=== PATIENT | female | born 1950 | race Caucasian/White ===

== ENCOUNTER 2021-08-10 14:31 | Outpatient (CLI) | payer MEDICARE | END 2021-08-10 14:32 | disposition home or self-care (01) | LOC: CSHMAMMO 14:31 | PROVIDERS: ATTEND Family Medicine | DX: Z12.31 Encounter for screening mammogram for malignant neoplasm of breast (principal) | CPT/HCPCS: 77063; 77067 ==

== ENCOUNTER 2021-09-20 08:13 | Outpatient (CLI) | payer MEDICARE | END 2021-09-20 08:14 | disposition home or self-care (01) | LOC: CSHCT 08:13 | PROVIDERS: ATTEND Internal Medicine Hematology & Oncology | DX: Z85.030 Personal history of malignant carcinoid tumor of large intestine (principal) | CPT/HCPCS: 74176; 82565 ==

== ENCOUNTER 2022-08-11 14:17 | Outpatient (CLI) | payer MEDICARE | END 2022-08-11 14:18 | disposition home or self-care (01) | LOC: CSHMAMMO 14:17 | PROVIDERS: ATTEND Family Medicine | DX: Z12.31 Encounter for screening mammogram for malignant neoplasm of breast (principal); Z13.820 Encounter for screening for osteoporosis; M81.0 Age-related osteoporosis without current pathological fracture; M85.89 Other specified disorders of bone density and structure, multiple sites | CPT/HCPCS: 77063; 77067; 77080 ==

== ENCOUNTER 2022-09-19 08:05 | Outpatient (CLI) | payer MEDICARE ==
[2022-09-19] MEDS ORDERED: Iopamidol 300 61% 100 ML VIAL FS ONE (15:35)
== END 2022-09-19 08:06 | disposition home or self-care (01) ==
LOC: CSHCT 08:05
PROVIDERS: ATTEND Internal Medicine Hematology & Oncology
DX: C7A.021 Malignant carcinoid tumor of the cecum (principal)
CPT/HCPCS: 74177; 82565

== ENCOUNTER 2023-09-15 09:35 | Outpatient (CLI) | payer MEDICARE ==
[2023-09-15] MEDS ORDERED: Iopamidol 300 61% 100 ML VIAL FS ONE (12:23)
== END 2023-09-15 09:36 | disposition home or self-care (01) ==
LOC: CSHCT 09:35
PROVIDERS: ATTEND Internal Medicine Hematology & Oncology
DX: D3A.00 Benign carcinoid tumor of unspecified site (principal)
CPT/HCPCS: 74177; 82565

== ENCOUNTER 2023-09-21 14:14 | Outpatient (CLI) | payer MEDICARE | END 2023-09-21 14:15 | disposition home or self-care (01) | LOC: CSHMAMMO 14:14 | PROVIDERS: ATTEND Family Medicine | DX: Z12.31 Encounter for screening mammogram for malignant neoplasm of breast (principal) | CPT/HCPCS: 77063; 77067 ==

== ENCOUNTER → 2024-09-11 | Outpatient (CLI) | payer MEDICARE | LOC: CSHCT 08:28 | PROVIDERS: ATTEND Internal Medicine Hematology & Oncology | DX: C7A.021 Malignant carcinoid tumor of the cecum (principal); K31.89 Other diseases of stomach and duodenum | CPT/HCPCS: 36415; 74177; 82565 ==

== ENCOUNTER 2024-09-25 12:46 | Outpatient (CLI) | payer MEDICARE | END 2024-09-25 12:47 | disposition home or self-care (01) | LOC: CSHMAMMO 12:46 | PROVIDERS: ATTEND Family Medicine | DX: Z12.31 Encounter for screening mammogram for malignant neoplasm of breast (principal); M81.0 Age-related osteoporosis without current pathological fracture; M85.89 Other specified disorders of bone density and structure, multiple sites | CPT/HCPCS: 77063; 77067; 77080 ==

== ENCOUNTER 2025-05-02 14:51 | Inpatient (IN) | payer MEDICARE ==
[~2025-05-02 14:51] MED LIST: Iopamidol 370 76% 100 ML VIAL ONE
[2025-05-02 15:20] LABS: #Basophils Less than 0.03 10x3/uL (0.0-0.2); #Eosinophils Less than 0.03 10x3/uL (0.0-0.5); #Monocytes 0.39 10x3/uL (0.0-1.1); #Neutrophils 6.56 10x3/uL (1.5-8.4); %Basophils 0.1 % (0.0-2.0); %Eosinophils 0.0 % (0.0-6.0); %Lymphocytes 10.2 % (18.0-47.0); %Monocytes 5.0 % (0.0-10.0); %Neutrophils 84.6 % (40.0-75.0); Hematocrit 40.8 % (34.9-44.5); Hemoglobin 13.9 g/dL (12.0-15.5); Mean Corpuscular Hemoglobin 33.3 pg (27.0-33.0); Mean Corpuscular Volume 97.8 fL (81.6-98.3); Platelet Count 221 10x3/uL (150-450); Red Blood Cell (RBC) Count 4.17 10x6/uL (3.90-5.03); White Blood Cell (WBC) Count 7.76 10x3/uL (3.5-10.5)
[2025-05-02 15:41] LABS: ALT (SGPT) 27 U/L (Less than 34); AST (SGOT) 34 U/L (11-34); Albumin 4.9 g/dL (3.1-4.5); Alkaline Phosphatase 67 U/L (40-110); Anion Gap 17 mmol/L (10-20); BUN (Urea Nitrogen) 13 mg/dL (9.8-20.1); Bilirubin, Total 0.7 mg/dL (0.3-1.2); Calc. Creatinine Clearance 0 mL/min (70-130); Calcium 10.2 mg/dL (7.8-10.44); Carbon Dioxide 25 mmol/L (23-31); Chloride 101 mmol/L (98-107); Globulin 2.8 g/dL (2.4-3.5); Glucose 134 mg/dL (83-110); Lipase 25 U/L (8-78); Potassium 3.9 mmol/L (3.5-5.1); Sodium 139 mmol/L (136-145)
[2025-05-02] MEDS ORDERED: Ondansetron PF 4 MG/2 ML Vial ONE (15:41)
[2025-05-02 15:47] LABS: Troponin I Less than 0.010 ng/mL (< 0.028)
[2025-05-02] MEDS ORDERED: Electrolyte Replacement Protocol 1 EACH FS SCH (17:30)
[2025-05-02 17:46] LABS: Glucose, Urine (Dipstick) Normal (Negative); Leukocyte Negative (Negative); Protein, Urine (Dipstick) 15 mg/dl (Neg-Trace); Specific Gravity, Urine 1.005 (1.005-1.030)
[2025-05-02 17:56] LABS: Bacteria/HPF 1+ HPF (None Seen); CAUTI Indications for Culture Pelvic or flank pain; RBC/HPF 0-3 HPF (0-3); WBC/HPF 0-3 HPF (0-3)
[2025-05-02 17:57] LABS: Urine Culture Reflex No No
[2025-05-02] MEDS: Famotidine/PF 20 mg/2ml Vial SLOW IVP SCH (20:26)
[2025-05-03 00:14] VITALS: BMI 19.3
[2025-05-03] MEDS: Ondansetron PF 4 MG/2 ML Vial IVP PRN (00:39)
[2025-05-03] MEDS: Ondansetron PF 4 MG/2 ML Vial IVP SCH (03:01)
[2025-05-03] MEDS: hydrALAZINE 20 MG/ML VIAL SLOW IVP PRN (03:07)
[2025-05-03 04:45] LABS: #Basophils Less than 0.03 10x3/uL (0.0-0.2); #Eosinophils 0.03 10x3/uL (0.0-0.5); #Monocytes 0.65 10x3/uL (0.0-1.1); #Neutrophils 6.07 10x3/uL (1.5-8.4); %Basophils 0.2 % (0.0-2.0); %Eosinophils 0.4 % (0.0-6.0); %Lymphocytes 15.7 % (18.0-47.0); %Monocytes 8.1 % (0.0-10.0); %Neutrophils 75.2 % (40.0-75.0); Hematocrit 42.2 % (34.9-44.5); Hemoglobin 13.9 g/dL (12.0-15.5); Mean Corpuscular Hemoglobin 32.3 pg (27.0-33.0); Mean Corpuscular Volume 98.1 fL (81.6-98.3); Platelet Count 197 10x3/uL (150-450); Red Blood Cell (RBC) Count 4.30 10x6/uL (3.90-5.03); White Blood Cell (WBC) Count 8.07 10x3/uL (3.5-10.5)
[2025-05-03 05:00] LABS: ALT (SGPT) 19 U/L (Less than 34); AST (SGOT) 30 U/L (11-34); Albumin 4.3 g/dL (3.1-4.5); Alkaline Phosphatase 64 U/L (40-110); Anion Gap 14 mmol/L (10-20); BUN (Urea Nitrogen) 10 mg/dL (9.8-20.1); Bilirubin, Total 0.7 mg/dL (0.3-1.2); Calc. Creatinine Clearance 80 mL/min (70-130); Calcium 9.3 mg/dL (7.8-10.44); Carbon Dioxide 21 mmol/L (23-31); Chloride 104 mmol/L (98-107); Globulin 2.7 g/dL (2.4-3.5); Glucose 115 mg/dL (83-110); Magnesium 2.0 mg/dL (1.6-2.6); Potassium 3.8 mmol/L (3.5-5.1); Sodium 135 mmol/L (136-145)
[2025-05-03] MEDS: Magnesium 2 GM/50 ML(in water) 2 GM in Premix 1 BAG IVPB SCH (07:51)
[2025-05-03] MEDS: Metoprolol Tartrate 5 MG (5 mL) VIAL IVP SCH (12:23)
[2025-05-04 04:37] LABS: #Basophils Less than 0.03 10x3/uL (0.0-0.2); #Eosinophils Less than 0.03 10x3/uL (0.0-0.5); #Monocytes 0.93 10x3/uL (0.0-1.1); #Neutrophils 7.44 10x3/uL (1.5-8.4); %Basophils 0.1 % (0.0-2.0); %Eosinophils 0.0 % (0.0-6.0); %Lymphocytes 8.2 % (18.0-47.0); %Monocytes 10.2 % (0.0-10.0); %Neutrophils 81.3 % (40.0-75.0); Hematocrit 42.7 % (34.9-44.5); Hemoglobin 13.8 g/dL (12.0-15.5); Mean Corpuscular Hemoglobin 31.9 pg (27.0-33.0); Mean Corpuscular Volume 98.6 fL (81.6-98.3); Platelet Count 209 10x3/uL (150-450); Red Blood Cell (RBC) Count 4.33 10x6/uL (3.90-5.03); White Blood Cell (WBC) Count 9.15 10x3/uL (3.5-10.5)
[2025-05-04 04:53] LABS: ALT (SGPT) 18 U/L (Less than 34); AST (SGOT) 37 U/L (11-34); Albumin 4.3 g/dL (3.1-4.5); Alkaline Phosphatase 65 U/L (40-110); Anion Gap 15 mmol/L (10-20); BUN (Urea Nitrogen) 13 mg/dL (9.8-20.1); Bilirubin, Total 0.8 mg/dL (0.3-1.2); Calc. Creatinine Clearance 76 mL/min (70-130); Calcium 9.6 mg/dL (7.8-10.44); Carbon Dioxide 28 mmol/L (23-31); Chloride 102 mmol/L (98-107); Globulin 2.9 g/dL (2.4-3.5); Glucose 131 mg/dL (83-110); Magnesium 2.3 mg/dL (1.6-2.6); Potassium 4.9 mmol/L (3.5-5.1); Sodium 140 mmol/L (136-145)
[2025-05-04] MEDS: Metoprolol Tartrate 5 MG (5 mL) VIAL IVP SCH (20:58)
[2025-05-05 04:36] LABS: Hematocrit 39.3 % (34.9-44.5); Hemoglobin 13.2 g/dL (12.0-15.5); Mean Corpuscular Hemoglobin 33.5 pg (27.0-33.0); Mean Corpuscular Volume 99.7 fL (81.6-98.3); Platelet Count 179 10x3/uL (150-450); Red Blood Cell (RBC) Count 3.94 10x6/uL (3.90-5.03); White Blood Cell (WBC) Count 4.89 10x3/uL (3.5-10.5)
[2025-05-05 04:39] LABS: MDiff Complete? YES; Platelet Adequacy Comment Appears Adequate; RBC Morphology Within Normal Limits
[2025-05-05 04:47] LABS: ALT (SGPT) 16 U/L (Less than 34); AST (SGOT) 35 U/L (11-34); Albumin 3.6 g/dL (3.1-4.5); Alkaline Phosphatase 62 U/L (40-110); Anion Gap 15 mmol/L (10-20); BUN (Urea Nitrogen) 16 mg/dL (9.8-20.1); Bilirubin, Total 1.1 mg/dL (0.3-1.2); Calc. Creatinine Clearance 79 mL/min (70-130); Calcium 9.0 mg/dL (7.8-10.44); Carbon Dioxide 27 mmol/L (23-31); Chloride 102 mmol/L (98-107); Globulin 2.9 g/dL (2.4-3.5); Glucose 93 mg/dL (83-110); Potassium 4.2 mmol/L (3.5-5.1); Sodium 140 mmol/L (136-145)
[2025-05-05] MEDS ORDERED: PROPOFOL 20 ML ONE (08:38)
[2025-05-05] MEDS ORDERED: PHENYLEPHRINE-NS 100 MCG/ML 10 ML SYRINGE ONE ×2 (08:39→09:13)
[2025-05-05] MEDS ORDERED: SUCCINYLCHOLINE/SOD CL,ISO/PF 200 MG/10 ML SYRINGE FS ONE (08:39)
[2025-05-05] MEDS ORDERED: Rocuronium Bromide 10 MG/ML (10ML VIAL) ONE (08:39)
[2025-05-05] MEDS ORDERED: Bupivacaine/Epinephrine 0.25% 30 ML VIAL ONE (08:49)
[2025-05-05] MEDS ORDERED: Bupivacaine HCl 0.5%/Epinephrine 1:200,000/PF 30 ml Vial ONE (10:01)
[2025-05-05] MEDS ORDERED: SUGAMMADEX SODIUM 200 MG/2 ML VIAL ONE (10:38)
[2025-05-05] MEDS: HYDROcodone/Acetaminophen 5/325 mg Tablet PO PRN (15:05)
[2025-05-05] MEDS: Ketorolac Tromethamine 30 MG (1 mL) VIAL IVP SCH (18:26)
[2025-05-06 05:53] LABS: ALT (SGPT) 14 U/L (Less than 34); AST (SGOT) 31 U/L (11-34); Albumin 2.9 g/dL (3.1-4.5); Alkaline Phosphatase 55 U/L (40-110); Anion Gap 12 mmol/L (10-20); BUN (Urea Nitrogen) 12 mg/dL (9.8-20.1); Bilirubin, Total 1.2 mg/dL (0.3-1.2); Calc. Creatinine Clearance 88 mL/min (70-130); Calcium 8.0 mg/dL (7.8-10.44); Carbon Dioxide 26 mmol/L (23-31); Chloride 104 mmol/L (98-107); Globulin 2.5 g/dL (2.4-3.5); Glucose 93 mg/dL (83-110); Magnesium 1.9 mg/dL (1.6-2.6); Potassium 3.6 mmol/L (3.5-5.1); Sodium 138 mmol/L (136-145)
[2025-05-06 05:55] LABS: Hematocrit 33.5 % (34.9-44.5); Hemoglobin 11.2 g/dL (12.0-15.5); Mean Corpuscular Hemoglobin 33.3 pg (27.0-33.0); Mean Corpuscular Volume 99.7 fL (81.6-98.3); Platelet Count 150 10x3/uL (150-450); Red Blood Cell (RBC) Count 3.36 10x6/uL (3.90-5.03); White Blood Cell (WBC) Count 1.61 10x3/uL (3.5-10.5)
[2025-05-06 06:25] LABS: MDiff Complete? YES; Platelet Adequacy Comment Appears Adequate; RBC Morphology Within Normal Limits
[2025-05-06] MEDS: Magnesium 2 GM/50 ML(in water) 2 GM in Premix 1 BAG IVPB SCH (08:56)
[2025-05-06 10:02] LABS: Hematocrit 34.1 % (34.9-44.5); Hemoglobin 10.9 g/dL (12.0-15.5); Mean Corpuscular Hemoglobin 31.9 pg (27.0-33.0); Mean Corpuscular Volume 99.7 fL (81.6-98.3); Platelet Count 141 10x3/uL (150-450); Red Blood Cell (RBC) Count 3.42 10x6/uL (3.90-5.03); White Blood Cell (WBC) Count 2.22 10x3/uL (3.5-10.5)
[2025-05-06 11:00] LABS: Platelet Adequacy Comment Appears Adequate; RBC Morphology Within Normal Limits
[2025-05-06 11:01] LABS: MDiff Complete? YES
[2025-05-07 04:53] LABS: ALT (SGPT) 17 U/L (Less than 34); AST (SGOT) 33 U/L (11-34); Albumin 2.8 g/dL (3.1-4.5); Alkaline Phosphatase 67 U/L (40-110); Anion Gap 13 mmol/L (10-20); BUN (Urea Nitrogen) 21 mg/dL (9.8-20.1); Bilirubin, Total 1.1 mg/dL (0.3-1.2); Calc. Creatinine Clearance 63 mL/min (70-130); Calcium 8.5 mg/dL (7.8-10.44); Carbon Dioxide 26 mmol/L (23-31); Chloride 100 mmol/L (98-107); Globulin 2.9 g/dL (2.4-3.5); Glucose 81 mg/dL (83-110); Hematocrit 31.1 % (34.9-44.5); Hemoglobin 10.5 g/dL (12.0-15.5); Magnesium 2.5 mg/dL (1.6-2.6); Mean Corpuscular Hemoglobin 33.3 pg (27.0-33.0); Mean Corpuscular Volume 98.7 fL (81.6-98.3); Platelet Count 150 10x3/uL (150-450); Potassium 3.9 mmol/L (3.5-5.1); Red Blood Cell (RBC) Count 3.15 10x6/uL (3.90-5.03); Sodium 135 mmol/L (136-145); White Blood Cell (WBC) Count 3.15 10x3/uL (3.5-10.5)
[2025-05-07 04:57] LABS: MDiff Complete? YES; Platelet Adequacy Comment Appears Adequate; RBC Morphology Within Normal Limits
[2025-05-08 05:00] LABS: Hematocrit 32.3 % (34.9-44.5); Hemoglobin 10.3 g/dL (12.0-15.5); Mean Corpuscular Hemoglobin 31.7 pg (27.0-33.0); Mean Corpuscular Volume 99.4 fL (81.6-98.3); Platelet Count 158 10x3/uL (150-450); Red Blood Cell (RBC) Count 3.25 10x6/uL (3.90-5.03); White Blood Cell (WBC) Count 4.08 10x3/uL (3.5-10.5)
[2025-05-08 05:16] LABS: ALT (SGPT) 14 U/L (Less than 34); AST (SGOT) 27 U/L (11-34); Albumin 2.5 g/dL (3.1-4.5); Alkaline Phosphatase 74 U/L (40-110); Anion Gap 20 mmol/L (10-20); BUN (Urea Nitrogen) 37 mg/dL (9.8-20.1); Bilirubin, Total 0.8 mg/dL (0.3-1.2); Calc. Creatinine Clearance 52 mL/min (70-130); Calcium 8.4 mg/dL (7.8-10.44); Carbon Dioxide 22 mmol/L (23-31); Chloride 99 mmol/L (98-107); Globulin 3.2 g/dL (2.4-3.5); Glucose 68 mg/dL (83-110); Potassium 4.4 mmol/L (3.5-5.1); Sodium 137 mmol/L (136-145)
[2025-05-08 06:00] LABS: MDiff Complete? YES; Platelet Adequacy Comment Appears Adequate
[2025-05-09 05:37] LABS: ALT (SGPT) 11 U/L (Less than 34); AST (SGOT) 24 U/L (11-34); Albumin 2.5 g/dL (3.1-4.5); Alkaline Phosphatase 86 U/L (40-110); Anion Gap 24 mmol/L (10-20); BUN (Urea Nitrogen) 30 mg/dL (9.8-20.1); Bilirubin, Total 0.6 mg/dL (0.3-1.2); Calc. Creatinine Clearance 62 mL/min (70-130); Calcium 8.5 mg/dL (7.8-10.44); Carbon Dioxide 20 mmol/L (23-31); Chloride 100 mmol/L (98-107); Globulin 3.3 g/dL (2.4-3.5); Glucose 71 mg/dL (83-110); Potassium 3.6 mmol/L (3.5-5.1); Sodium 140 mmol/L (136-145)
[2025-05-09 06:51] LABS: Hematocrit 35.5 % (34.9-44.5); Hemoglobin 11.4 g/dL (12.0-15.5); Mean Corpuscular Hemoglobin 31.9 pg (27.0-33.0); Mean Corpuscular Volume 99.4 fL (81.6-98.3); Platelet Count 194 10x3/uL (150-450); Red Blood Cell (RBC) Count 3.57 10x6/uL (3.90-5.03); White Blood Cell (WBC) Count 6.02 10x3/uL (3.5-10.5)
[2025-05-09 07:02] LABS: Burr Cells SLIGHT = 2-5 cells (100X) (0-1/hpf); MDiff Complete? YES; Platelet Adequacy Comment Appears Adequate; Poikilocytosis SLIGHT = 6-15 cells (100X) (0-5/hpf)
[2025-05-09 19:22] VITALS: BMI 19.3
[2025-05-09] MEDS: Cefdinir 300 MG CAP PO SCH (22:07)
[2025-05-11 05:30] LABS: Hematocrit 34.4 % (34.9-44.5); Hemoglobin 11.4 g/dL (12.0-15.5); Mean Corpuscular Hemoglobin 32.0 pg (27.0-33.0); Mean Corpuscular Volume 96.6 fL (81.6-98.3); Platelet Count 195 10x3/uL (150-450); Red Blood Cell (RBC) Count 3.56 10x6/uL (3.90-5.03); White Blood Cell (WBC) Count 10.02 10x3/uL (3.5-10.5)
[2025-05-11 05:46] LABS: Anion Gap 17 mmol/L (10-20); BUN (Urea Nitrogen) 7 mg/dL (9.8-20.1); Calc. Creatinine Clearance 92 mL/min (70-130); Calcium 8.0 mg/dL (7.8-10.44); Carbon Dioxide 23 mmol/L (23-31); Chloride 102 mmol/L (98-107); Glucose 122 mg/dL (83-110); Potassium 2.9 mmol/L (3.5-5.1); Sodium 139 mmol/L (136-145)
[2025-05-11] MEDS: Potassium Chloride 20 MEQ in Premix 1 BAG IVPB SCH ×2 (15:03→23:29)
[2025-05-11] MEDS: VANCOMYCIN 1.25 GM/250 ML BAG 1.25 GM in Premix 1 BAG IVPB SCH (15:05)
[2025-05-11 22:12] LABS: Potassium 3.5 mmol/L (3.5-5.1)
[2025-05-11] MEDS: Vancomycin HCl 750 MG in Sodium Chloride 0.9% 250 ML 250 ML IVPB SCH (23:29)
[2025-05-12] MEDS: Metoprolol Tartrate 5 MG (5 mL) VIAL IVP SCH (00:35)
[2025-05-12 07:08] LABS: Hematocrit 36.4 % (34.9-44.5); Hemoglobin 12.2 g/dL (12.0-15.5); Mean Corpuscular Hemoglobin 32.9 pg (27.0-33.0); Mean Corpuscular Volume 98.1 fL (81.6-98.3); Platelet Count 249 10x3/uL (150-450); Red Blood Cell (RBC) Count 3.71 10x6/uL (3.90-5.03); White Blood Cell (WBC) Count 10.89 10x3/uL (3.5-10.5)
[2025-05-12 07:27] LABS: Vancomycin, Random 7.7 ug/mL (See Comment)
[2025-05-12 07:32] LABS: ALT (SGPT) 8 U/L (Less than 34); AST (SGOT) 22 U/L (11-34); Albumin 2.1 g/dL (3.1-4.5); Alkaline Phosphatase 97 U/L (40-110); Anion Gap 18 mmol/L (10-20); BUN (Urea Nitrogen) 5 mg/dL (9.8-20.1); Bilirubin, Total 0.9 mg/dL (0.3-1.2); Calc. Creatinine Clearance 87 mL/min (70-130); Calcium 8.0 mg/dL (7.8-10.44); Carbon Dioxide 24 mmol/L (23-31); Chloride 103 mmol/L (98-107); Globulin 3.2 g/dL (2.4-3.5); Glucose 88 mg/dL (83-110); Magnesium 1.6 mg/dL (1.6-2.6); Potassium 3.8 mmol/L (3.5-5.1); Sodium 141 mmol/L (136-145)
[2025-05-12] MEDS: Magnesium 2 GM/50 ML(in water) 2 GM in Premix 1 BAG IVPB SCH (08:37)
[2025-05-12] MEDS: VANCOMYCIN 1.25 GM/250 ML BAG 1.25 GM in Premix 1 BAG IVPB SCH (10:43)
[2025-05-12] MEDS ORDERED: Phenol 177 ML BOT PO PRN (10:53)
[2025-05-12] MEDS: Potassium Phosphate 15 MMOL in Sodium Chloride 0.9% 250 ML 250 ML IVPB SCH (12:58)
[2025-05-13 05:46] LABS: Hematocrit 34.8 % (34.9-44.5); Hemoglobin 11.2 g/dL (12.0-15.5); Mean Corpuscular Hemoglobin 31.5 pg (27.0-33.0); Mean Corpuscular Volume 98.0 fL (81.6-98.3); Platelet Count 245 10x3/uL (150-450); Red Blood Cell (RBC) Count 3.55 10x6/uL (3.90-5.03); White Blood Cell (WBC) Count 8.95 10x3/uL (3.5-10.5)
[2025-05-13 06:00] LABS: Anion Gap 17 mmol/L (10-20); BUN (Urea Nitrogen) 5 mg/dL (9.8-20.1); Calc. Creatinine Clearance 99 mL/min (70-130); Calcium 7.8 mg/dL (7.8-10.44); Carbon Dioxide 24 mmol/L (23-31); Chloride 106 mmol/L (98-107); Glucose 87 mg/dL (83-110); Magnesium 1.8 mg/dL (1.6-2.6); Potassium 3.2 mmol/L (3.5-5.1); Sodium 144 mmol/L (136-145); Vancomycin, Random 12.2 ug/mL (See Comment)
[2025-05-13] MEDS: Magnesium 2 GM/50 ML(in water) 2 GM in Premix 1 BAG IVPB SCH (08:55)
[2025-05-13] MEDS: Potassium Bicarbonate/Cit Ac 20 MEQ TAB PO SCH (09:14)
[2025-05-14 07:24] LABS: Magnesium 2.0 mg/dL (1.6-2.6)
[2025-05-14 08:07] LABS: Potassium 3.0 mmol/L (3.5-5.1)
[2025-05-14 10:10] LABS: #Basophils Less than 0.03 10x3/uL (0.0-0.2); #Eosinophils 0.05 10x3/uL (0.0-0.5); #Monocytes 0.50 10x3/uL (0.0-1.1); #Neutrophils 5.90 10x3/uL (1.5-8.4); %Basophils 0.3 % (0.0-2.0); %Eosinophils 0.7 % (0.0-6.0); %Lymphocytes 8.5 % (18.0-47.0); %Monocytes 7.0 % (0.0-10.0); %Neutrophils 82.5 % (40.0-75.0); Hematocrit 32.7 % (34.9-44.5); Hemoglobin 10.8 g/dL (12.0-15.5); Mean Corpuscular Hemoglobin 32.4 pg (27.0-33.0); Mean Corpuscular Volume 98.2 fL (81.6-98.3); Platelet Count 267 10x3/uL (150-450); Red Blood Cell (RBC) Count 3.33 10x6/uL (3.90-5.03); White Blood Cell (WBC) Count 7.15 10x3/uL (3.5-10.5)
[2025-05-14 10:29] LABS: Anion Gap 15 mmol/L (10-20); BUN (Urea Nitrogen) 4 mg/dL (9.8-20.1); Calc. Creatinine Clearance 115 mL/min (70-130); Calcium 7.7 mg/dL (7.8-10.44); Carbon Dioxide 24 mmol/L (23-31); Chloride 108 mmol/L (98-107); Glucose 96 mg/dL (83-110); Potassium 2.9 mmol/L (3.5-5.1); Sodium 144 mmol/L (136-145)
[2025-05-14] MEDS: Magnesium 2 GM/50 ML(in water) 2 GM in Premix 1 BAG IVPB SCH (12:16)
[2025-05-14] MEDS: Potassium Bicarbonate/Cit Ac 20 MEQ TAB PO SCH (13:54)
[2025-05-14 15:13] LABS: Potassium 2.8 mmol/L (3.5-5.1)
[2025-05-14] MEDS: Senokot S 8.6-50 MG TAB PO SCH ×2 (16:32→20:54)
[2025-05-14 22:33] LABS: Potassium 3.1 mmol/L (3.5-5.1)
[2025-05-15 06:03] LABS: #Basophils Less than 0.03 10x3/uL (0.0-0.2); #Eosinophils 0.06 10x3/uL (0.0-0.5); #Monocytes 0.56 10x3/uL (0.0-1.1); #Neutrophils 5.50 10x3/uL (1.5-8.4); %Basophils 0.3 % (0.0-2.0); %Eosinophils 0.9 % (0.0-6.0); %Lymphocytes 11.6 % (18.0-47.0); %Monocytes 8.0 % (0.0-10.0); %Neutrophils 78.5 % (40.0-75.0); Hematocrit 29.0 % (34.9-44.5); Hemoglobin 9.6 g/dL (12.0-15.5); Mean Corpuscular Hemoglobin 32.1 pg (27.0-33.0); Mean Corpuscular Volume 97.0 fL (81.6-98.3); Platelet Count 253 10x3/uL (150-450); Red Blood Cell (RBC) Count 2.99 10x6/uL (3.90-5.03); White Blood Cell (WBC) Count 7.00 10x3/uL (3.5-10.5)
[2025-05-15 06:31] LABS: Anion Gap 13 mmol/L (10-20); BUN (Urea Nitrogen) Less than 4 mg/dL (9.8-20.1); Calc. Creatinine Clearance 109 mL/min (70-130); Carbon Dioxide 24 mmol/L (23-31); Chloride 106 mmol/L (98-107); Glucose 116 mg/dL (83-110); Magnesium 1.7 mg/dL (1.6-2.6); Potassium 3.8 mmol/L (3.5-5.1); Sodium 139 mmol/L (136-145)
[2025-05-15 06:35] LABS: Calcium 6.9 mg/dL (7.8-10.44)
[2025-05-15] MEDS: PHOS-NAK 1 PKT PACK PO SCH (07:08)
[2025-05-15] MEDS: Magnesium 2 GM/50 ML(in water) 2 GM in Premix 1 BAG IVPB SCH (08:34)
[2025-05-15] MEDS: Folic Acid 1 MG TAB PO SCH (08:35)
[2025-05-15] MEDS: Acetaminophen/Codeine 30-300mg Tablet PO PRN (15:53)
[2025-05-15 17:19] LABS: Ferritin 315.23 ng/mL (10-291)
[2025-05-15 19:57] LABS: Iron 21 ug/dL (50-170)
[2025-05-15 20:42] LABS: Vitamin B12 Greater than 2000 pg/mL (211-911)
[2025-05-15 20:57] LABS: Iron Binding Capacity, Total 179 mcg/dL (265-497)
[2025-05-16 05:24] LABS: #Basophils 0.03 10x3/uL (0.0-0.2); #Eosinophils 0.06 10x3/uL (0.0-0.5); #Monocytes 0.59 10x3/uL (0.0-1.1); #Neutrophils 6.34 10x3/uL (1.5-8.4); %Basophils 0.4 % (0.0-2.0); %Eosinophils 0.8 % (0.0-6.0); %Lymphocytes 10.4 % (18.0-47.0); %Monocytes 7.4 % (0.0-10.0); %Neutrophils 80.0 % (40.0-75.0); Hematocrit 29.8 % (34.9-44.5); Hemoglobin 9.9 g/dL (12.0-15.5); Mean Corpuscular Hemoglobin 32.5 pg (27.0-33.0); Mean Corpuscular Volume 97.7 fL (81.6-98.3); Platelet Count 287 10x3/uL (150-450); Red Blood Cell (RBC) Count 3.05 10x6/uL (3.90-5.03); White Blood Cell (WBC) Count 7.92 10x3/uL (3.5-10.5)
[2025-05-16 05:42] LABS: Anion Gap 11 mmol/L (10-20); BUN (Urea Nitrogen) 4 mg/dL (9.8-20.1); Calc. Creatinine Clearance 106 mL/min (70-130); Calcium 7.7 mg/dL (7.8-10.44); Carbon Dioxide 31 mmol/L (23-31); Chloride 105 mmol/L (98-107); Glucose 119 mg/dL (83-110); Magnesium 2.1 mg/dL (1.6-2.6); Potassium 3.5 mmol/L (3.5-5.1); Sodium 143 mmol/L (136-145)
[2025-05-16] MEDS: Potassium Bicarbonate/Cit Ac 20 MEQ TAB PO SCH (08:57)
[2025-05-16] MEDS: Acetaminophen 325 MG TAB PO PRN (10:35)
[2025-05-17 05:16] LABS: Hematocrit 32.5 % (34.9-44.5); Hemoglobin 10.4 g/dL (12.0-15.5); Mean Corpuscular Hemoglobin 31.7 pg (27.0-33.0); Mean Corpuscular Volume 99.1 fL (81.6-98.3); Platelet Count 334 10x3/uL (150-450); Red Blood Cell (RBC) Count 3.28 10x6/uL (3.90-5.03); White Blood Cell (WBC) Count 7.37 10x3/uL (3.5-10.5)
[2025-05-17 05:21] LABS: MDiff Complete? YES; Platelet Adequacy Comment Appears Adequate; RBC Morphology Within Normal Limits
[2025-05-17 05:27] LABS: Anion Gap 10 mmol/L (10-20); BUN (Urea Nitrogen) 5 mg/dL (9.8-20.1); Calc. Creatinine Clearance 112 mL/min (70-130); Calcium 7.7 mg/dL (7.8-10.44); Carbon Dioxide 30 mmol/L (23-31); Chloride 103 mmol/L (98-107); Glucose 86 mg/dL (83-110); Potassium 3.9 mmol/L (3.5-5.1); Sodium 139 mmol/L (136-145)
[2025-05-17 11:41] VITALS: BP 136/75; TEMP 98.6
== END 2025-05-17 14:12 | disposition home health service (06) | DRG 329 ==
LOC: CSHERS 14:51 → CSHTELE 17:54
PROVIDERS: ADMIT Internal Medicine; ATTEND Internal Medicine
PROC: 0DTF0ZZ Resection of Right Large Intestine, Open Approach (ICD-10-PCS; principal; 2025-05-05)
PROC: 0DB80ZZ Excision of Small Intestine, Open Approach (ICD-10-PCS; 2025-05-05)
DX: K56.609 Unspecified intestinal obstruction, unspecified as to partial versus complete obstruction (principal); K55.059 Acute (reversible) ischemia of intestine, part and extent unspecified; L03.90 Cellulitis, unspecified; E44.0 Moderate protein-calorie malnutrition; Z68.1 Body mass index [BMI] 19.9 or less, adult; E78.5 Hyperlipidemia, unspecified; I10 Essential (primary) hypertension; K46.9 Unspecified abdominal hernia without obstruction or gangrene; K57.10 Diverticulosis of small intestine without perforation or abscess without bleeding; E87.6 Hypokalemia; E83.39 Other disorders of phosphorus metabolism; E83.42 Hypomagnesemia; D50.9 Iron deficiency anemia, unspecified; B96.5 Pseudomonas (aeruginosa) (mallei) (pseudomallei) as the cause of diseases classified elsewhere; B96.89 Other specified bacterial agents as the cause of diseases classified elsewhere; Z79.899 Other long term (current) drug therapy; Z88.2 Allergy status to sulfonamides; Z88.1 Allergy status to other antibiotic agents; Z88.8 Allergy status to other drugs, medicaments and biological substances
CPT/HCPCS: 36415; 36416; 71045; 74018; 74019; 74177; 74250; 80048; 80053; 80202; 81001; 82040; 82607; 82728; 83540; 83550; 83605; 83690; 83735; 83880; 84100; 84132; 84484; 85025; 85027; 85060; 87040; 87070; 87077; 87081; 87186; 87205; 88307; 93005; 94760; 94762; 96374; 96375; 97139; J0360; J0692; J0694; J1308; J1885; J2270; J2272; J2371; J2405; J2550; J2704; J3010; J3373; J3411; J3475; J3480; J7050; J7120; P9045; Q9967

== ENCOUNTER 2025-09-10 07:11 | Outpatient (CLI) | payer MEDICARE ==
[2025-09-10 08:03] LABS: Estimated GFR - POC 90.0
[2025-09-10] MEDS ORDERED: Iopamidol 300 61% 100 ML VIAL FS ONE (09:14)
== END 2025-09-10 07:12 | disposition home or self-care (01) ==
LOC: CSHCT 07:11
PROVIDERS: ATTEND Internal Medicine Hematology & Oncology
DX: C7A.021 Malignant carcinoid tumor of the cecum (principal); R68.81 Early satiety; K57.30 Diverticulosis of large intestine without perforation or abscess without bleeding
CPT/HCPCS: 36415; 74177; 82565; Q9967